=== PATIENT | female | born 2000 | race Two or more races ===

== ENCOUNTER 2024-11-08 18:38 | Emergency (ER) | payer OTHER ==
[~2024-11-08] VITALS: Ht 167.6 cm; Wt 90.7 kg
[2024-11-08] MEDS: FAMOTIDINE/PF INJ 20 MG/2 ML VIAL IV ONE (19:00)
[2024-11-08] MEDS: diphenhydrAMINE HCL 50 MG/ML VIAL IV ONE (19:00)
[2024-11-08] MEDS: IV NS 0.9% 1,000 ML BAG IV ONE (19:00)
[2024-11-08] MEDS: methylPREDNISolone SOD SUCC 125 MG/2ML VIAL IV ONE (19:00)
[2024-11-08] MEDS ORDERED: FAMOTIDINE/PF INJ 20 MG/2 ML VIAL IV ONE (19:04)
[2024-11-08] MEDS ORDERED: methylPREDNISolone SOD SUCC 125 MG/2ML VIAL ONE (19:04)
[2024-11-08] MEDS ORDERED: diphenhydrAMINE HCL 50 MG/ML VIAL ONE (19:04)
[2024-11-08] MEDS ORDERED: PRED50TA PO (19:32)
[2024-11-08] MEDS ORDERED: DIPH25CA83 PO (19:32)
[2024-11-08] MEDS ORDERED: FAMO20TA80 PO (19:33)
[2024-11-08 20:39] VITALS: BP 109/62; TEMP 98.2; O2SAT 98
== END 2024-11-08 20:39 | disposition home or self-care (01) ==
LOC: ER 18:53
DX: L50.9 Urticaria, unspecified (principal); T78.49XA Other allergy, initial encounter; F17.200 Nicotine dependence, unspecified, uncomplicated; Z79.52 Long term (current) use of systemic steroids; Z88.8 Allergy status to other drugs, medicaments and biological substances; Z79.899 Other long term (current) drug therapy; Y92.89 Other specified places as the place of occurrence of the external cause
CPT/HCPCS: 99284; 96374; 96375; 96361; J2919; J1200; J1308; J7030